=== PATIENT | male | born 1995 | race Hispanic/Latino ===

== ENCOUNTER 2019-12-29 06:31 | Inpatient (IN) | payer BC, MEDICAID ==
[~2019-12-29] VITALS: Ht 172.7 cm; Wt 73.2 kg
[2019-12-29 07:50] LABS: BASOPHILS % (AUTO) 0.1 % (0.0-5.0); HEMATOCRIT 21.7 % (42-54); LYMPHOCYTES % (AUTO) 1.6 % (21.0-51.0); MEAN CORPUSCULAR HEMOGLOBIN 29.4 pg (27.0-33.0); MEAN CORPUSCULAR HGB CONC 33.6 g/dL (32.0-36.0); MEAN CORPUSCULAR VOLUME 87.5 fL (79-99); MONOCYTES % (AUTO) 3.3 % (3.0-13.0); NEUTROPHILS % (AUTO) 94.4 % (40.0-77.0); PLATELET COUNT (AUTO) 341 K/uL (130-400); RED BLOOD CELL COUNT(AUTO) 2.48 MIL/uL (4.50-6.20); RED CELL DISTRIBUTION WIDTH 13.9 % (11.0-15.5); WHITE BLOOD COUNT (AUTO) 27.2 K/uL (4.8-10.8)
[2019-12-29 08:19] LABS: BILIRUBIN,TOTAL 0.4 mg/dL (0.2-1.0); TOTAL PROTEIN, SERUM 8.2 g/dL (6.0-8.3)
[2019-12-29] MEDS ORDERED: ACETAMINOPHEN 325 MG TAB ONE ×2 (08:36→09:32)
[2019-12-29 09:15] LABS: POTASSIUM 6.6 mmol/L (3.5-5.1)
[2019-12-29] MEDS ORDERED: CALCIUM GLUCONATE 1 GM/10 ML VIAL IV ONE (09:32)
[2019-12-29] MEDS ORDERED: SODIUM CHLORIDE 0.9% 100 ML IV ONE (09:33)
[2019-12-29] MEDS ORDERED: DEXTROSE 50%-WATER 50 ML DISP.SYRIN IV ONE (09:33)
[2019-12-29] MEDS ORDERED: SODIUM BICARB 50MEQ 50ML VIAL ONE ×2 (09:34→10:19)
[2019-12-29] MEDS ORDERED: INSULIN HUMULIN R 100 UNIT/ML 3ML ONE (09:35)
[2019-12-29] MEDS ORDERED: ALBUTEROL SULFATE 0.083% 2.5 MG/3 ML INH IH ONE (09:54)
[2019-12-29 10:28] LABS: ABG BASE EXCESS -25.7 mmol/L (-2.0-3.0); ABG HCO3 4.1 mmol/L (21.0-28.0); ABG OXYGEN SATURATION 97.6 % (95.0-99.0); ABG PCO2 17 mmHg (35-48)
[2019-12-29 13:39] LABS: POTASSIUM 5.2 mmol/L (3.5-5.1)
[2019-12-29 13:42] LABS: CREATININE 20.5 mg/dL (0.5-1.5)
[2019-12-29] MEDS ORDERED: SODIUM CHLORIDE 0.9% 1000ML 1,000 ML IV SCH (13:45)
--- NOTE | 2019-12-29 15:00 | NUR ---
CM NOTE/IA MEET WITH PATIENT IN ROOM. PER PATIENT IS INDEPENDENT WITH ADLS, LIVES WITH PARENTS WITH ADULT BROTHER AND ADULT SISTER, NO HOME HEALTH OR PROVIDER SERVICES, NO DME IN USE, WORKS, DRIVES AND FEELS SAFE TO RETURN HOME. Addendum: 01/01/20 at 1502 by ANDREAS HECTOR RN CM Amended: Links added.
[2019-12-29 15:12] LABS: APPEARANCE,URINE Clear (CLEAR); BILIRUBIN,URINE Negative (NEGATIVE); COLOR,URINE Yellow (YELLOW); GLUCOSE, URINE (UA) TRACE mg/dL (NEGATIVE); KETONES,URINE Negative (NEGATIVE); LEUKOCYTE ESTERASE ,URINE Trace (NEGATIVE); NITRATE,URINE Negative (NEGATIVE); OCCULT BLOOD,URINE Small (NEGATIVE); PROTEIN,URINE POS 1+ mg/dL (NEGATIVE); UROBILINOGEN,URINE 0.2 mg/dL (0.2-1.0)
[2019-12-29 15:20] LABS: AMPHET/METH SCREEN,URINE NEGATIVE (NEGATIVE); BARBITURATE SCREEN, URINE NEGATIVE (NEGATIVE); BENZODIAZEPINES SCREEN,URINE NEGATIVE (NEGATIVE); CANNABINOID SCREEN,URINE NEGATIVE (NEGATIVE); COCAINE SCREEN,URINE NEGATIVE (NEGATIVE); OPIATE SCREEN,URINE NEGATIVE (NEGATIVE); PHENCYCLIDINE SCREEN,URINE NEGATIVE (NEGATIVE)
[2019-12-29 15:21] LABS: BACTERIA,URINE Few /HPF (None Seen); RBC,URINE 0-1 /HPF (0-1); SQUAMOUS EPITHELIAL CELL,UR Rare /HPF (0-2)
[2019-12-29 15:22] LABS: AMORPHOUS SEDIMENT,UR Rare /LPF (None Seen)
[2019-12-29] MEDS ORDERED: SODIUM BICARBONATE 650 MG TAB PO SCH (17:00)
[2019-12-29] MEDS: SODIUM BICARBONATE 650 MG TAB PO SCH (21:00)
[2019-12-29 23:08] LABS: PROTEIN,URINE RANDOM 58.7 mg/dL (0-11.9)
[2019-12-29 23:50] VITALS: BP 133/59
[2019-12-30] VITALS (10 sets, daily range): BP systolic 122–151; BP diastolic 67–85
[2019-12-30 00:48] LABS: INR 1.09 (0.85-1.15); PARTIAL THROMBOPLASTIN TIME 35.1 SEC (26.3-35.5); PROTHROMBIN TIME 11.7 SEC (9.6-11.6)
[2019-12-30 07:09] LABS: MEAN CORPUSCULAR HEMOGLOBIN 30.1 pg (27.0-33.0); MEAN CORPUSCULAR HGB CONC 34.3 g/dL (32.0-36.0); MEAN CORPUSCULAR VOLUME 87.8 fL (79-99); PLATELET COUNT (AUTO) 274 K/uL (130-400); RED BLOOD CELL COUNT(AUTO) 1.96 MIL/uL (4.50-6.20); RED CELL DISTRIBUTION WIDTH 13.9 % (11.0-15.5); WHITE BLOOD COUNT (AUTO) 12.6 K/uL (4.8-10.8)
[2019-12-30 07:13] LABS: HEMATOCRIT 17.2 % (42-54)
[2019-12-30 07:23] LABS: INR 1.12 (0.85-1.15); PARTIAL THROMBOPLASTIN TIME 36.9 SEC (26.3-35.5)
--- NOTE | 2019-12-30 07:30 | NUR ---
Jae HUITRON NOTIFIED OF 5.9 HG. PER ORDERS TYPE AND SCREEN FOR 2 U
[2019-12-30 07:46] LABS: % IRON SATURATION 76.2 % (30-44)
[2019-12-30 08:02] LABS: BASOPHILS % (MANUAL) 2 % (0-2); EOSINOPHILS % (MANUAL) 1 % (1-6); LYMPHOCYTES % (MANUAL) 10 % (22-44); MAN.DIFF COMMENT-IMPRESSION MANUAL DIFFERENTIAL; MONOCYTES % (MANUAL) 1 % (2-9); SEGMENTED NEUTROPHILS % 86 % (40-70)
[2019-12-30 08:03] LABS: PLATELET MORPHOLOGY COMMENT ADEQUATE
[2019-12-30 08:51] LABS: PHOSPHORUS 13.8 mg/dL (2.5-4.9); POTASSIUM 5.7 mmol/L (3.5-5.1)
[2019-12-30 08:58] LABS: CREATININE 19.9 mg/dL (0.5-1.5)
[2019-12-30] MEDS ORDERED: LIDOCAINE HCL 1% MDV 50ML VIAL ONE (10:40)
[2019-12-30] MEDS ORDERED: EPOETIN ALFA 10,000 UNIT/ML VIAL SQ SCH (12:00)
[2019-12-30] MEDS: SODIUM BICARBONATE 650 MG TAB PO SCH ×2 (13:42→20:05)
[2019-12-30] MEDS: CALCIUM ACETATE 667 MG CAPSULE PO SCH ×2 (13:42→16:45)
[2019-12-30 14:12] LABS: ALBUMIN 3.2 g/dL (3.5-5.0)
[2019-12-30] MEDS ORDERED: NITROGLYCERIN 0.4 MG SL TAB SL PRN (14:15)
[2019-12-30] MEDS ORDERED: ACETAMINOPHEN 325 MG TAB PO PRN (14:15)
[2019-12-30] MEDS ORDERED: HEPARIN SODIUM 5000UNIT/ML 1ML VIAL IJ PRN (14:15)
[2019-12-30] MEDS ORDERED: SODIUM CHLORIDE 0.9% 1000ML 1,000 ML IV PRN (14:15)
[2019-12-30] MEDS ORDERED: 0.9% SODIUM CHLORIDE 1000 ML IV BAG IV PRN (14:15)
[2019-12-30 15:21] LABS: HEMOGLOBIN A1C 4.5 % (4.0-6.0)
[2019-12-31 03:50] VITALS: BP 135/69
[2019-12-31] MEDS ORDERED: ONDANSETRON HCL 4 MG/2 ML VIAL ONE (04:14)
[2019-12-31] MEDS ORDERED: ONDANSETRON HCL 4 MG/2 ML VIAL IVP SCH (04:15)
[2019-12-31 04:19] LABS: HEMATOCRIT 21.7 % (42-54); MEAN CORPUSCULAR HEMOGLOBIN 29.5 pg (27.0-33.0); MEAN CORPUSCULAR VOLUME 84.1 fL (79-99); PLATELET COUNT (AUTO) 227 K/uL (130-400); RED BLOOD CELL COUNT(AUTO) 2.58 MIL/uL (4.50-6.20); WHITE BLOOD COUNT (AUTO) 8.7 K/uL (4.8-10.8)
[2019-12-31 04:24] LABS: POTASSIUM 3.7 mmol/L (3.5-5.1)
[2019-12-31 05:15] LABS: LYMPHOCYTES % (MANUAL) 13 % (22-44); MAN.DIFF COMMENT-IMPRESSION MANUAL DIFFERENTIAL; PLATELET MORPHOLOGY COMMENT ADEQUATE; SEGMENTED NEUTROPHILS % 87 % (40-70)
[2019-12-31] MEDS: CALCIUM ACETATE 667 MG CAPSULE PO SCH ×4 (08:31→17:12)
[2019-12-31] MEDS: SODIUM BICARBONATE 650 MG TAB PO SCH ×2 (08:34→21:40)
[2019-12-31 09:04] VITALS: BP 136/64
[2019-12-31] MEDS ORDERED: ONDANSETRON HCL 4 MG/2 ML VIAL IVP PRN (09:15)
[2019-12-31] MEDS: ONDANSETRON HCL 4 MG/2 ML VIAL IVP PRN ×2 (09:18→21:41)
[2019-12-31 12:11] VITALS: BP 158/86
[2019-12-31 16:00] VITALS: BP 156/92
[2019-12-31 20:38] VITALS: BP 138/77
[2019-12-31 23:41] VITALS: BP 139/84
[2020-01-01] VITALS (24 sets, daily range): BP systolic 132–158; BP diastolic 65–115
[2020-01-01 03:46] LABS: BASOPHILS % (AUTO) 0.3 % (0.0-5.0); EOSINOPHILS % (AUTO) 1.4 % (0.0-8.0); HEMATOCRIT 23.4 % (42-54); LYMPHOCYTES % (AUTO) 16.8 % (21.0-51.0); MEAN CORPUSCULAR HEMOGLOBIN 29.6 pg (27.0-33.0); MEAN CORPUSCULAR VOLUME 84.5 fL (79-99); MONOCYTES % (AUTO) 15.9 % (3.0-13.0); PLATELET COUNT (AUTO) 216 K/uL (130-400); RED BLOOD CELL COUNT(AUTO) 2.77 MIL/uL (4.50-6.20); RED CELL DISTRIBUTION WIDTH 12.5 % (11.0-15.5); WHITE BLOOD COUNT (AUTO) 8.7 K/uL (4.8-10.8)
[2020-01-01 04:01] LABS: PHOSPHORUS 8.9 mg/dL (2.5-4.9); POTASSIUM 3.3 mmol/L (3.5-5.1)
[2020-01-01 04:04] LABS: CREATININE 9.5 mg/dL (0.5-1.5)
[2020-01-01 07:14] LABS: HEPATITIS Bs ANTIGEN SCREEN P Negative (Negative)
[2020-01-01] MEDS: CALCIUM ACETATE 667 MG CAPSULE PO SCH ×3 (07:57→16:46)
[2020-01-01] MEDS ORDERED: FERR325T22 PO (10:17)
[2020-01-01] MEDS ORDERED: LISI1TAB51 PO (10:17)
[2020-01-01] MEDS: CEFAZOLIN SODIUM 1 GM VIAL IVP PRN ×2 (11:17→12:45)
[2020-01-01] MEDS ORDERED: DEXAMETHASONE SOD PHOSPHATE 10MG/ML 1ML VIAL ONE ×2 (12:16→12:20)
[2020-01-01] MEDS ORDERED: LIDOCAINE PF 2% 5ML ABBOJECT ONE (12:16)
[2020-01-01] MEDS ORDERED: MIDAZOLAM HCL 1 MG/ML 2ML VIAL ONE (12:17)
[2020-01-01] MEDS ORDERED: GLYCOPYRROLATE 1 MG/5 ML SYRINGE ONE (12:17)
[2020-01-01] MEDS ORDERED: NEOSTIGMINE 5MG/5ML SYR IV ONE (12:17)
[2020-01-01] MEDS ORDERED: PROPOFOL 10 MG/ML 20ML VIAL IV ONE ×2 (12:17→14:09)
[2020-01-01] MEDS ORDERED: ONDANSETRON HCL 4 MG/2 ML VIAL ONE (12:17)
[2020-01-01] MEDS ORDERED: ROCURONIUM 10MG/1ML SYR 10 MG/ML ML ONE (12:18)
[2020-01-01] MEDS ORDERED: FENTANYL CITRATE PF 50 MCG/1 ML 2ML VIAL ONE ×2 (12:18→13:17)
[2020-01-01] MEDS ORDERED: CEFAZOLIN SODIUM 1 GM VIAL ONE (12:25)
[2020-01-01] MEDS ORDERED: LIDOCAINE HCL 1% 20 ML VIAL ONE (12:59)
[2020-01-01] MEDS ORDERED: BUPIVACAINE/PF 0.5% 30ML VIAL ONE (12:59)
[2020-01-01] MEDS ORDERED: ACETAMINOPHEN 325 MG TAB PO PRN (13:30)
[2020-01-01] MEDS ORDERED: TRAMADOL HCL 50 MG TABLET PO PRN ×2 (13:30)
[2020-01-01] MEDS ORDERED: HEPARIN SODIUM 1000UNIT/ML 10ML VIAL ONE (13:36)
[2020-01-01] MEDS ORDERED: LISINOPRIL 20 MG TABLET PO SCH (17:30)
--- NOTE | 2020-01-01 17:35 | NUR ---
CM NOTE/DAVITA APPROVED CALL FROM MARY JO FROM [facility], STATES PATIENT APPROVED FOR DIALYSIS CHAIR AND TIME AND WILL FAX ME CONFIRMATION. DID NOT RECEIVE CONFIRMATION, ALREADY AFTER 5PM. JANEE EDEN CALLED, PER DK, CONFIRMATION RECEIVED AND DIALYSIS CHAIR DATE/TIME WILL BE 01/04/20 AT 3PM. PER DK, PATIENT CAN DC AFTER FINAL DIALYSIS TREATMENT ON 01/01 AND SEE JANEE FOR APPOINTMENT ON 01/04/20. PRIMARY NURSE, ERICA RN, MADE AWARE. PATIENT MADE AWARE OF APPOINTMENT DATE AND TIME. WHEN PATIENT VISITED, QUESTIONS ASKED FOR WHAT SEEMED POSSIBLE FML PAPERWORK BEING ASKED AT HIS PLACE OF EMPLOYMENT. INFORMED PATIENT FML IS NOT DONE BY CM, REQUESTED CM VISIT TOMORROW BEFORE HE LEAVES FOR HOME. CM TO FOLLOW UP IN AM.
[2020-01-02 03:46] VITALS: BP 144/99
[2020-01-02 04:31] LABS: HEMATOCRIT 22.9 % (42-54); MEAN CORPUSCULAR HGB CONC 34.9 g/dL (32.0-36.0); PLATELET COUNT (AUTO) 216 K/uL (130-400); RED BLOOD CELL COUNT(AUTO) 2.76 MIL/uL (4.50-6.20); RED CELL DISTRIBUTION WIDTH 12.3 % (11.0-15.5); WHITE BLOOD COUNT (AUTO) 9.3 K/uL (4.8-10.8)
[2020-01-02 04:55] LABS: BAND NEUTROPHILS % (MANUAL) 1 % (0-2); LYMPHOCYTES % (MANUAL) 5 % (22-44); MONOCYTES % (MANUAL) 6 % (2-9); SEGMENTED NEUTROPHILS % 88 % (40-70)
[2020-01-02 04:56] LABS: MAN.DIFF COMMENT-IMPRESSION MANUAL DIFFERENTIAL; PLATELET MORPHOLOGY COMMENT ADEQUATE
[2020-01-02 05:35] LABS: PHOSPHORUS 11.8 mg/dL (2.5-4.9); POTASSIUM 3.8 mmol/L (3.5-5.1)
[2020-01-02 05:52] LABS: CREATININE 10.5 mg/dL (0.5-1.5)
[2020-01-02 08:00] VITALS: BP 135/79
[2020-01-02] MEDS: CALCIUM ACETATE 667 MG CAPSULE PO SCH ×3 (08:02→17:00)
[2020-01-02] MEDS ORDERED: LISINOPRIL 20 MG TABLET PO SCH (09:00)
[2020-01-02 12:00] VITALS: BP 133/83
[2020-01-02] MEDS ORDERED: Calcium Acetate PO (13:39)
[2020-01-02] MEDS ORDERED: LISI-613 PO (13:39)
--- NOTE | 2020-01-02 14:56 | NUR ---
WILL D/C PATIENT HOME AFTER TODAY'S DIALYSIS TREATMENT THAT WAS STARTED AROUND 1430
[2020-01-02 16:00] VITALS: BP 150/97
--- NOTE | 2020-01-02 18:23 | NUR ---
PT READY TO LEAVE AT THIS TIME; HIS FAMILY WILL BE ARRIVING SHORTLY TO PICK HIM UP; THE PIV ACCESS HAS BEEN REMOVED. DIALYSIS NURSE HAS CHANGED THE DRESSING ON HIS RIGHT CHEST PERMACATH; D/C INSTRUCTIONS HAVE BEEN GIVEN TO THE PATIENT ON CATH CARE AND RENAL DIET AND NEW PERSCRIPTIONS INCLUDING NOT TO CONTINUE CURRENT HOME MEDICATIONS; ACTIVITY LIMITATIONS HAVE ALSO BEEN DISCUSSED WITH THE PATIENT; AND TO CALL DR KENDALL AND DR CARL FOR FOLLOW UP APPOINTMENTS SINCE I CAN NOT MAKE THEM FOR HIM BEING THE WEEKEND; PT STATES UNDERSTANDING OF ALL INSTRUCTIONS,
== END 2020-01-02 18:42 | disposition home or self-care (01) | DRG 673 ==
LOC: EDH 06:31 → EDHIP 09:50 → 4DH 23:36
PROVIDERS: ADMIT Internal Medicine Nephrology; ATTEND Internal Medicine Nephrology
PROC: 5A1D70Z Performance of Urinary Filtration, Intermittent, Less than 6 Hours Per Day (ICD-10-PCS; 2019-12-30)
PROC: 30233N1 Transfusion of Nonautologous Red Blood Cells into Peripheral Vein, Percutaneous Approach (ICD-10-PCS; 2019-12-30)
PROC: 0JH63XZ Insertion of Tunneled Vascular Access Device into Chest Subcutaneous Tissue and Fascia, Percutaneous Approach (ICD-10-PCS; 2019-12-30)
PROC: 02H633Z Insertion of Infusion Device into Right Atrium, Percutaneous Approach (ICD-10-PCS; 2019-12-30)
PROC: B548ZZA Ultrasonography of Superior Vena Cava, Guidance (ICD-10-PCS; 2019-12-30)
PROC: B5181ZA Fluoroscopy of Superior Vena Cava using Low Osmolar Contrast, Guidance (ICD-10-PCS; 2019-12-30)
PROC: 5A1D70Z Performance of Urinary Filtration, Intermittent, Less than 6 Hours Per Day (ICD-10-PCS; 2019-12-31)
PROC: 031C0ZF Bypass Left Radial Artery to Lower Arm Vein, Open Approach (ICD-10-PCS; principal; 2020-01-01 13:14)
PROC: 5A1D70Z Performance of Urinary Filtration, Intermittent, Less than 6 Hours Per Day (ICD-10-PCS; 2020-01-02)
DX: I12.0 Hypertensive chronic kidney disease with stage 5 chronic kidney disease or end stage renal disease (principal); N18.6 End stage renal disease; E87.2 Acidosis; N28.9 Disorder of kidney and ureter, unspecified; D64.9 Anemia, unspecified; R80.9 Proteinuria, unspecified; E87.5 Hyperkalemia; Z20.828 Contact with and (suspected) exposure to other viral communicable diseases; E87.70 Fluid overload, unspecified; Z99.2 Dependence on renal dialysis; Z79.899 Other long term (current) drug therapy
CPT/HCPCS: 36415; 36430; 36558; 36600; 71045; 76770; 77001; 80048; 80053; 80061; 80305; 81001; 82040; 82550; 82570; 82728; 82803; 83036; 83540; 83550; 83605; 83615; 83880; 84100; 84156; 84484; 85025; 85378; 85610; 85730; 86140; 86701; 86704; 86706; 86850; 86900; 86901; 86922; 87040; 87340; 87390; 87486; 87520; 87581; 87633; 87798; 87804; 90935; 93005; 93971; 94640; 99291; C1750; G0378; J0610; J0690; J0885; J1100; J1644; J1815; J2001; J2250; J2405; J2704; J2710; J3010; J3490; J7030; J7070; P9016

== ENCOUNTER → 2020-02-02 | Outpatient (CLI) | payer BC ==
[~2020-02-02] MED LIST: Calcium Acetate PO; LISI-613 PO
== END | disposition home or self-care (01) ==
LOC: RAH 15:12
PROVIDERS: ATTEND Thoracic Surgery (Cardiothoracic Vascular Surgery)
DX: T82.9XXA Unspecified complication of cardiac and vascular prosthetic device, implant and graft, initial encounter (principal)
CPT/HCPCS: 93990

== ENCOUNTER 2020-02-17 15:18 | Emergency (ER) | payer BC, OTHER ==
[2020-02-17] MEDS ORDERED: OCTYL 2-CYANOACRYLATE 1 EACH TP ONE (15:56)
[2020-02-17 15:58] LABS: BASOPHILS % (AUTO) 0.3 % (0.0-5.0); EOSINOPHILS % (AUTO) 0.6 % (0.0-8.0); HEMATOCRIT 40.4 % (42-54); LYMPHOCYTES % (AUTO) 3.3 % (21.0-51.0); MEAN CORPUSCULAR HEMOGLOBIN 29.5 pg (27.0-33.0); MEAN CORPUSCULAR HGB CONC 33.2 g/dL (32.0-36.0); MONOCYTES % (AUTO) 10.8 % (3.0-13.0); NEUTROPHILS % (AUTO) 84.5 % (40.0-77.0); PLATELET COUNT (AUTO) 209 K/uL (130-400); RED BLOOD CELL COUNT(AUTO) 4.54 MIL/uL (4.50-6.20); RED CELL DISTRIBUTION WIDTH 15.9 % (11.0-15.5); WHITE BLOOD COUNT (AUTO) 10.8 K/uL (4.8-10.8)
[2020-02-17] MEDS ORDERED: TRAMADOL HCL 50 MG TABLET ONE (15:59)
[2020-02-17 16:09] LABS: CREATININE 7.4 mg/dL (0.5-1.5); POTASSIUM 3.8 mmol/L (3.5-5.1)
[2020-02-17 16:12] LABS: INR 1.04 (0.85-1.15); PARTIAL THROMBOPLASTIN TIME 30.1 SEC (26.3-35.5); PROTHROMBIN TIME 11.2 SEC (9.6-11.6)
[2020-02-17 16:14] LABS: ALBUMIN 3.9 g/dL (3.5-5.0); BILIRUBIN,TOTAL 0.4 mg/dL (0.2-1.0); TOTAL PROTEIN, SERUM 8.5 g/dL (6.0-8.3)
== END 2020-02-17 16:46 | disposition home or self-care (01) ==
LOC: EDH 15:18
DX: S01.81XA Laceration without foreign body of other part of head, initial encounter (principal); I12.0 Hypertensive chronic kidney disease with stage 5 chronic kidney disease or end stage renal disease; N18.6 End stage renal disease; W18.09XA Striking against other object with subsequent fall, initial encounter; Y93.89 Activity, other specified; Y92.89 Other specified places as the place of occurrence of the external cause; Y99.8 Other external cause status
CPT/HCPCS: 12011; 36415; 70450; 80053; 82550; 84484; 85025; 85610; 85730; 93005